=== PATIENT | female | born 1965 | race Caucasian/White ===

== ENCOUNTER 2018-06-30 16:44 | Emergency (ER) | payer BC ==
[2018-06-30 17:33] VITALS: BP 122/75
--- NOTE | 2018-06-30 17:55 | UC ---
Skin Complaint HPI - HPI Summary HPI Summary: Pt c/o sudden onset of "itchy" , erythematous rash on right upper anterior rash taht began 1 week ago. pt unsure of contact of known allergen. Pt states that rash has now spread distally down breast toward areola. Pt has been applying OTC steroid cream. No improvement. Pt took benadryl once last week. NO antihistamine since. - History of Current Complaint Chief Complaint: UCSkin Time Seen by Provider: 06/30/18 17:38 Stated Complaint: RASH ON CHEST Hx Obtained From: Patient ?: No Onset/Duration: Sudden Onset, Lasting Days, Still Present, Worse Since - onset Skin Exposure Onset/Duration: Days Ago Timing: Constant Onset Severity: Mild Current Severity: Mild Pain Intensity: 0 Location: Discrete Character: Pruritus, Redness Aggravating Factor(s): Touch Alleviating Factor(s): Nothing Associated Signs & Symptoms: Positive: Rash Related History: Possible Reaction to: Environmental Exposure - Allergy/Home Medications Allergies/Adverse Reactions: Allergies Allergy/AdvReac Type Severity Reaction Status Date / Time No Known Allergies Allergy Verified 06/30/18 17:33 Review of Systems Constitutional: Negative Skin: Rash Eyes: Negative ENT: Negative Respiratory: Negative Cardiovascular: Negative Gastrointestinal: Negative Genitourinary: Negative Motor: Negative Neurovascular: Negative Musculoskeletal: Negative Neurological: Negative Psychological: Negative Is Patient Immunocompromised?: No All Other Systems Reviewed And Are Negative: Yes PMH/Surg Hx/FS Hx/Imm Hx Previously Healthy: Yes - Surgical History Surgical History: None Surgery Procedure, Year, and Place: denies - Family History Known Family History: Positive: None Family History: no cardio vascular issues in family lineage - Social History Occupation: Employed Full-time Lives: With Family Alcohol Use: None Substance Use Type: None Smoking Status (MU): Never Smoked Tobacco Have You Smoked in the Last Year: No - Immunization History Vaccination Up to Date: Yes Physical Exam Triage Information Reviewed: Yes Appearance: Well-Appearing Vital Signs: Initial Vital Signs Temp 97.3 F 06/30/18 17:29 Pulse 67 06/30/18 17:29 Resp 16 06/30/18 17:29 BP 122/75 06/30/18 17:29 Pulse Ox 100 06/30/18 17:29 Vital Signs Reviewed: Yes Eye Exam: Normal ENT Exam: Normal ENT: Positive: Hearing grossly normal Dental Exam: Normal Neck exam: Normal Respiratory Exam: Normal Cardiovascular Exam: Normal Musculoskeletal Exam: Normal Neurological Exam: Normal Psychological Exam: Normal Skin: Positive: rashes - raised, erythematous rash, with excoriation power from scratching anterior chest just above right breast. Pt denies rash on areola. Blanchable. Course/Dx - Differential Diagnoses - Skin Complaint Differential Diagnoses: Contact Dermatitis, Urticaria, Varicella Zoster - Diagnoses Provider Diagnoses: contact dermatitis Discharge - Sign-Out/Discharge Documenting (check all that apply): Patient Departure All imaging exams completed and their final reports reviewed: No Studies - Discharge Plan Condition: Stable Disposition: HOME Prescriptions: predniSONE TAB* [Deltasone 20 MG TAB*] 20 mg PO DAILY #5 tab Patient Education Materials: Antihistamine (By mouth), Contact Dermatitis (ED) Referrals: Savannah Rodriguez MD [Primary Care Provider] - If Needed - Billing Disposition and Condition Condition: STABLE Disposition: Home
== END 2018-06-30 17:59 | disposition home or self-care (01) ==
LOC: UCCORT 16:44
DX: L25.9 Unspecified contact dermatitis, unspecified cause (principal)
CPT/HCPCS: 99212; G0463